=== PATIENT | male | born 1995 | race Caucasian/White ===

== ENCOUNTER → 2020-08-21 10:15 | Outpatient (BNVA) | payer OTHER, SELFPAY | PROVIDERS: Visit Provider Surgery | DX: Z76.89 Persons encountering health services in other specified circumstances (principal) ==

== ENCOUNTER 2020-09-12 07:12 | Day surgery (SDC) | payer OTHER, SELFPAY ==
[2020-09-06 13:12] VITALS: BMI 36.9
[2020-09-11 10:10] VITALS: BMI 37.0
--- NOTE | 2020-09-11 11:06 | HO.ANESPROP2 ---
Documented by User: Geno Delgado 09/11/20 11:07 HPI - Anesthesia Eval Consult details Narrative: 25yo M for Excision [facility]idal C[facility] Past Medical History Medical History Cysts Obesity Sacrococcygeal pilonidal cyst Surgical History Surgical History History of incision and drainage Social History Social History Alcohol intake: current Alcohol intake frequency: holidays/special occasions only Smoking Status: Never smoker Advance Directives: No Advance Directives Information Provided: Yes Meds Allergies Allergy/AdvReac Type Severity Reaction Status Date / Time bee pollen [BEE STINGS] Allergy Severe Anaphylaxis Verified 09/12/20 07:43 amoxicillin [AMOXICILLIN] Allergy Unknown AT Verified 09/12/20 07:43 CHILDHOOD UNKNOWN Home Medications Medication Instructions Recorded Confirmed Type epinephrine 0.3 mg IM ONCE PRN 09/06/20 09/12/20 History Exam Exam Date and Time: September 11, 2020 1106 Height,Weight and Vital Signs: Height 5 ft 5 in Weight 101 kg Assessment and Plan Assessment Anesthesia Assessment: Chart Reviewed Documented by User: Leticia Cornejo 09/12/20 07:50 [facility] Past Medical History Medical History Cysts Obesity Sacrococcygeal pilonidal cyst Surgical History Surgical History History of incision and drainage Social History Social History Alcohol intake: current Alcohol intake frequency: holidays/special occasions only Smoking Status: Never smoker Advance Directives: No Advance Directives Information Provided: Yes Meds Allergies Allergy/AdvReac Type Severity Reaction Status Date / Time bee pollen [BEE STINGS] Allergy Severe Anaphylaxis Verified 09/12/20 07:43 amoxicillin [AMOXICILLIN] Allergy Unknown AT Verified 09/12/20 07:43 CHILDHOOD UNKNOWN Home Medications Medication Instructions Recorded Confirmed Type epinephrine 0.3 mg IM ONCE PRN 09/06/20 09/12/20 History
[2020-09-12 07:57] VITALS: BP 121/77; PULSE 76; RESP 16; TEMP 36.4; O2SAT 96
[2020-09-12] MEDS: Lactated Ringers 1,000 ML 100 ML IVCONT (08:05)
[2020-09-12] MEDS: ceFAZolin Sodium/Dextrose,Iso 2 GM/50 ML PIGGYBACK IV (08:05)
--- NOTE | 2020-09-12 08:44 | MHC.SHP ---
Pre-Procedural Eval Section B Chief Complaint: Sacrococcygeal pilonidal cyst Allergies: Allergies Allergy/AdvReac Type Severity Reaction Status Date / Time bee pollen [BEE STINGS] Allergy Severe Anaphylaxis Verified 09/12/20 07:43 amoxicillin [AMOXICILLIN] Allergy Unknown AT Verified 09/12/20 07:43 CHILDHOOD UNKNOWN Plan Patient has been examined and remains a candidate for the planned procedure
--- NOTE | 2020-09-12 08:53 | P.CONAN_ITS ---
FORM[facility]LY [facility] Past Medical History Medical History Cysts Obesity Sacrococcygeal pilonidal cyst Surgical History Surgical History History of incision and drainage Social History Social History Alcohol intake: current Alcohol intake frequency: holidays/special occasions only Smoking Status: Never smoker Advance Directives: No Advance Directives Information Provided: Yes Meds Allergies Allergy/AdvReac Type Severity Reaction Status Date / Time bee pollen [BEE STINGS] Allergy Severe Anaphylaxis Verified 09/12/20 07:43 amoxicillin [AMOXICILLIN] Allergy Unknown AT Verified 09/12/20 07:43 CHILDHOOD UNKNOWN Home Medications Medication Instructions Recorded Confirmed Type epinephrine 0.3 mg IM ONCE PRN 09/06/20 09/12/20 History Exam Exam Date and Time: September 12, 2020 0853 Height,Weight and Vital Signs: Height 5 ft 5 in Weight 101 kg Last Vital Signs Temp 97.5 F 09/12/20 07:57 Pulse 76 09/12/20 07:57 Resp 16 09/12/20 07:57 BP 121/77 09/12/20 07:57 Pulse Ox 96 09/12/20 07:57 Airway Mallampati Class: II TM Dist: >3cm Neck ROM: Full Assessment and Plan Assessment Anesthesia Assessment: Anesthesia Plan Discussed and Chart Reviewed Final Anesthetic Review NPO: Yes ASA Class: II Final Preanesthetic Review: No Changes in Pt Med Stat, Meds/Allgs Chart Reviewed, Consent Obtained/Reviewed and Anes Risks/Benef Reviewed Patient Risk: Low Procedure Risk: Low Assessment/Block/Sedation in SS: Assess/Block/Sedation-SS Anesthetic Plan Anesthetic Plan: GA Disposition: Standard PACU
--- NOTE | 2020-09-12 09:49 | PM.OP ---
Brief Operative Note Date of Service: 09/12/20 Pre-op diagnosis: pilondal cyst, sacrococcygeal area Post-op diagnosis: same Procedure: exc of pilonidal cyst Surgeon: Huber Quinones MD Anesthesia: GLMA Tax Manager Public: Corrine Montilla Estimated blood loss (mL): 20 Pathology: other (pilonidal) Condition: stable Disposition: PACU
[2020-09-12 09:51] VITALS: BP 128/79; PULSE 73; RESP 16; TEMP 36.3; O2SAT 98
[2020-09-12 09:56] VITALS: BP 131/79; PULSE 67; RESP 16; O2SAT 98
[2020-09-12 10:01] VITALS: BP 119/67; PULSE 79; RESP 16; O2SAT 98
[2020-09-12 10:06] VITALS: BP 128/89; PULSE 69; RESP 16; O2SAT 98
[2020-09-12] MEDS: Acetaminophen 325 MG TABLET 650 MG PO (10:10)
[2020-09-12 10:21] VITALS: BP 114/72; PULSE 72; RESP 18; O2SAT 99
--- NOTE | 2020-09-12 10:29 | OP_ITS ---
SURGEON: Huber Quinones MD INDICATIONS: The patient is a 25-year-old male who has had recurrent swelling and drainage in the area of the tailbone. He was seen in the office, was noted to have large induration with a sinus on the sacrococcygeal area to the right of the midline and smaller on to the left. There was noted to have midline pit more distal, more caudal to this. In view of this problem, he wanted to proceed with excision. He understood technique of excision of the pilonidal cyst. He is aware of the risks, benefits, and alternatives. PREOPERATIVE DIAGNOSIS: Pilonidal cyst, sacrococcygeal area. POSTOPERATIVE DIAGNOSIS: Pilonidal cyst, sacrococcygeal area. PROCEDURE PERFORMED: ESTIMATED BLOOD LOSS: COMPLICATIONS: ANESTHESIA: ASSISTANTS: SPECIMENS: PROCEDURE DONE: Excision of pilonidal cyst, sacrococcygeal area. STEEP TENDER: Corrine Montilla PA-C. DESCRIPTION OF PROCEDURE: He was brought to the operating room and placed in prone position under general anesthesia via laryngeal mask airway. The sacrococcygeal area was prepped in usual sterile fashion. The buttocks had been retracted with wide tape to expose the gluteal cleft. The induration as described above was noted. As planned marked an incision using a pen and infiltrated this area with lidocaine 1%. I made an incision elliptically around this indurated area on both sides using blade #15. This carried down to full-thickness skin and subcutaneous fat using electrocautery. We continued to dissect through the subcutaneous fat to excise all the indurated areas. We excised this diseased skin and subcutaneous layer as one specimen. We continued to dissect posteriorly until the entire diseased area was excised. The incision was about 4 or 5 cm long. I proceeded to undermine both sides with thick subcutaneous fat as a flap to cover the entire defect. I copiously irrigated. I had used electrocautery to control oozing areas. Once hemostasis was ensured, we proceeded to then reappose the subcutaneous layer with Dexon 2-0 interrupted sutures. We had released the retracting tape on both sides at this point. I closed the skin with full-thickness nylon 2-0 interrupted sutures alternating with vertical mattress sutures. The area was infiltrated with Marcaine 0.5% for postop analgesia. Dressings were applied. The patient tolerated the procedure well. There were no complications noted. Initial and final counts of the sponges and instruments were correct. Estimated blood loss was about 10 mL. The patient was extubated without difficulty and transferred to recovery room with stable vital signs. MD ROSEMARY Arteaga/MICHI / [phone]
--- NOTE | 2020-09-12 10:39 | HO.POSTANES ---
Post Anesthesia Evaluation Post Anesthesia Evaluation Vital Signs: Vital Signs Temp Pulse Resp BP Pulse Ox 09/12/20 10:21 97.4 F 72 18 114/72 99 09/12/20 10:06 69 16 128/89 98 09/12/20 10:01 79 16 119/67 98 09/12/20 09:56 67 16 131/79 98 09/12/20 09:51 97.4 F 73 16 128/79 98 09/12/20 07:57 97.5 F 76 16 121/77 96 Anesthesia: General LMA Mental Status: Awake Pain Control: Satisfactory Nausea/Vomiting: None Hydration: Adequate Anesthesia-Related Issues: No Anes. Related Issues
== END 2020-09-12 11:13 | disposition home or self-care (01) ==
PROVIDERS: Surgery; Visit Provider Nuclear Medicine
PROC: (CPT 11770; principal; 2020-09-12 09:00)
DX: L05.91 Pilonidal cyst without abscess (principal); Z88.0 Allergy status to penicillin
CPT/HCPCS: 11770; 88304; J0690; J1100; J2250; J2405; J3010

== ENCOUNTER → 2020-09-25 13:00 | Outpatient (BNVA) | payer OTHER, SELFPAY | PROVIDERS: Visit Provider Surgery | DX: Z76.89 Persons encountering health services in other specified circumstances (principal) ==

== ENCOUNTER → 2020-10-04 08:39 | Outpatient (BNVA) | payer OTHER, SELFPAY | PROVIDERS: Visit Provider Surgery | DX: Z76.89 Persons encountering health services in other specified circumstances (principal) ==

== ENCOUNTER → 2020-11-02 08:39 | Outpatient (BNVA) | payer OTHER, SELFPAY | PROVIDERS: Visit Provider Surgery ==